=== PATIENT | male | born 1960 | race Caucasian/White ===

== ENCOUNTER 2025-05-09 12:01 | Day surgery (SDC) | payer BC ==
[~2025-05-09] VITALS: Ht 175.3 cm; Wt 83.2 kg
[2025-05-09] VITALS (11 sets, daily range): BP systolic 103–145; BP diastolic 55–79; PULSE 48–54; RESP 10–18; TEMP 98.2; O2SAT 96–98
[~2025-05-09 12:01] MED LIST: ASCO-294 PO; ASPI-611 PO; ATOR40TA72 PO; LISI10TA27 PO; MULT-1085 PO
[2025-05-09] MEDS ORDERED: verapamil 2.5 mg/ml inj IV ONE (12:28)
[2025-05-09] MEDS ORDERED: heparin 1,000unit/ml 10ml vial 10 ML ONE (12:28)
[2025-05-09] MEDS ORDERED: fentaNYL/PF 50MCG/1 ML 2ML syringe ONE (12:28)
[2025-05-09] MEDS ORDERED: midazolam 1 mg/ML 2ml injection ONE ×2 (12:28→13:14)
[2025-05-09] MEDS ORDERED: LIDOcaine 1% (10mg/ml) 2ml vial ONE (12:28)
[2025-05-09] MEDS ORDERED: nitroGLYCERIN 500mcg/5mL D5W 5 ML IV ONE (12:29)
[2025-05-09] MEDS ORDERED: clopidogrel 300mg tablet ONE (13:51)
--- NOTE | 2025-05-09 13:52 | ELECTROCARDIOGRAPH REPORT ---
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 GLORIA Edwards Measurements Intervals Jay Rate: 56 P: 57 MN: 170 QRS: -66 QRSD: 104 T: -40 QT: 427 QTc: 413 Interpretive Statements Sinus bradycardia Inferior infarct, age indeterminate Electronically Signed On 05-09-2025 17:32:[address] GLORIA Edwards Please click the below link to view image of tracing.
[2025-05-09] MEDS ORDERED: HYDROcodone/acetaminophen 10/325mg tab PO PRN (14:45)
[2025-05-09] MEDS ORDERED: ondansetron/PF 4mg/2ml inj IV PRN (14:45)
[2025-05-09] MEDS ORDERED: HYDROcodone/acetaminophen 5mg/325mg tablet PO PRN (14:45)
[2025-05-09] MEDS ORDERED: OXAZEpam 15mg capsule PO PRN (14:45)
[2025-05-09] MEDS ORDERED: CLOP75TA33 PO ×2 (15:41→15:45)
--- NOTE | 2025-05-27 12:23 | CARDIOLOGY REPORT ---
DATE OF SERVICE: 05/09/2025 DICTATING PHYSICIAN: Bo Sharma MD CARDIAC CATHETERIZATION REPORT DATE OF STUDY: 05/09/2025 PROCEDURES: * Left heart catheterization. * Selective coronary angiography. * Left ventriculography. * Angioplasty of the right coronary artery. * Stenting x2 of the right coronary artery. * Conscious sedation monitoring time for 45 minutes. INDICATION: Abnormal stress test. PHYSICIAN: Bo Sharma M.D. DESCRIPTION OF PROCEDURE: After informed consent was obtained, the patient was brought to the cardiac laborer syrup machine in a fasting state where the patient was prepped and draped in the usual sterile manner. After adequate anesthesia was obtained using 1% lidocaine to the right wrist, a 5-Turkmen sheath was inserted into the right radial artery using a modified Seldinger technique. Thereafter, using a cocktail of heparin, verapamil and nitroglycerin, the cocktail was given via the sheath in the radial artery to prevent coronary vasospasm and for anticoagulation. Next, using an Ultimate-2 catheter, the catheter was advanced under fluoroscopy guidance into the ascending aorta. The catheter was then manipulated to engage the left coronary system and coronary angiography of the left system was obtained. Next, the catheter was disengaged and manipulated to engage the right coronary artery and selective coronary angiography of the right coronary artery was obtained. Thereafter, the catheter was disengaged from the right coronary artery and manipulated to advance into the left ventricle where left ventriculography in the BARR position was obtained. The catheter was then removed. Hemostasis was obtained using the radial band. HEMODYNAMICS: For the patient's hemodynamics, please refer to the event log. There was no significant gradient across the aortic valve on catheter pullback. FINDINGS: The left main coronary artery is a normal caliber vessel with mild luminal irregularities. The left anterior descending coronary artery is a medium caliber vessel with a 20%-30% proximal and 30% mid vessel stenosis. The circumflex coronary artery is a large caliber vessel with 40% calcified stenosis immediately proximal to the obtuse marginal branch and ongoing circumflex coronary artery. The right coronary artery is a large dominant vessel with ulcerated tandem high-grade stenosis in the proximal and the mid RCA. Left ventriculography revealed appearance of normal left ventricular function. Left ventricular end diastolic pressure is 4 mmHg. Percutaneous coronary intervention: Using an extra backup guiding catheter with side holes, an 0.014 Choice PT wire was carefully navigated across the type C lesion. Next, using a 2.5 x 20 mm track balloon, the balloon was advanced across the mid vessel lesion and then the proximal lesion where it was dilated to rated burst atmospheres. Thereafter, using a 3.5 x 38 Newton Sub[place]o stent, the stent was advanced across the mid vessel and proximal lesion where it was deployed to rated burst atmospheres. A second stent then, a 3.0 x 12 Newton Sub[place]o stent was used for the proximal stenosis. Both stents were overlapped and dilated to rated burst atmospheres. Follow up angiography revealed excellent angiographic results. IMPRESSION: * Angioplasty/stenting x2 of an extensively calcified 99% proximal and 90% mid vessel type C lesion with a 3.5 x 38 in the mid to proximal RCA and a 3.0 x 12 Royer Subiaco stent in the proximal RCA overlapping both stents with excellent angiographic results and 0% residual. * The patient had AYANA 3 flow both pre and post-procedure. * 30% stenosis of the proximal and mid LAD. * 40% stenosis of the proximal circumflex coronary artery. * Preserved left ventricular function. Left ventricular end diastolic pressure was 4 mmHg. Bo Sharma MD TID: [id number] RECEIPT: [id number] JAMES/CARLOS/GIOVANNI
== END 2025-05-09 17:55 | disposition home or self-care (01) ==
LOC: SSTAY O 12:01
PROVIDERS: ATTEND Student in an Organized Health Care Education/Training Program
DX: R94.39 Abnormal result of other cardiovascular function study (principal); I25.118 Atherosclerotic heart disease of native coronary artery with other forms of angina pectoris; I25.2 Old myocardial infarction; I10 Essential (primary) hypertension; E78.00 Pure hypercholesterolemia, unspecified; Z86.0100 Personal history of colon polyps, unspecified; Z85.72 Personal history of non-Hodgkin lymphomas; Z79.82 Long term (current) use of aspirin; Z79.899 Other long term (current) drug therapy; Z98.890 Other specified postprocedural states
CPT/HCPCS: 93005; 93458; 99152; 99153; A6258; C1874; C9600; J1644; J2003; J2250; J3010; J3490; J7030; Q9967; A6402; C1725; C1751; C1769; C1894